=== PATIENT | male | born 1945 | race Caucasian/White ===

== ENCOUNTER 2020-11-23 10:45 | Day surgery (SDC) | payer MEDICARE ==
[~2020-11-23] VITALS: Ht 188 cm; Wt 93.2 kg
[2020-11-23] VITALS (15 sets, daily range): BP systolic 104–135; BP diastolic 43–77
[~2020-11-23 10:45] MED LIST: ATOR10TA87 PO; FAMO-1 PO; HYDR12.522 PO; IRBE150T51 PO; NITR0.4T SL; OMEP-84 PO
[2020-11-23] MEDS ORDERED: ALPR-624 PO (11:24)
[2020-11-23] MEDS ORDERED: vitamin c (11:24)
[2020-11-23] MEDS ORDERED: DULO20CA50 PO (11:24)
[2020-11-23 11:57] LABS: BASOPHILS % (AUTO) 1.2 % (0-1); EOSINOPHILS # (AUTO) 0.1 X10'3 (0-0.9); EOSINOPHILS % (AUTO) 2.8 % (0-6); HEMOGLOBIN 12.2 g/dl (14.0-17.9); LYMPHOCYTES # (AUTO) 0.4 X10'3 (1.1-4.8); MEAN CORPUSCULAR HEMOGLOBIN 28.8 PG (27.0-31.0); MEAN CORPUSCULAR HGB CONC 33.9 g/dL (33.0-36.5); MEAN PLATELET VOLUME 7.9 FL (7.4-10.4); MONOCYTES # (AUTO) 0.2 X10'3 (0-0.9); MONOCYTES % (AUTO) 8.5 % (2-12); NEUTROPHILS # (AUTO) 1.7 X10'3 (1.8-7.7); NEUTROPHILS % (AUTO) 70.5 % (42-75); PLATELET COUNT 116 X10'3 (140-440); RED BLOOD COUNT 4.23 X10'6 (4.70-6.10); RED CELL DISTRIBUTION WIDTH 14.3 % (11.5-14.5); WHITE BLOOD COUNT 2.4 X10'3 (4.5-11.0)
[2020-11-23 12:12] LABS: ALANINE AMINOTRANSFERASE 18 U/L (12-78); ALBUMIN/GLOBULIN RATIO 1.5 (1.1-1.5); ALKALINE PHOSPHATASE 66 IU/L (46-116); ANION GAP 9 (8-16); ASPARTATE AMINO TRANSFERASE 14 U/L (10-37); BLOOD UREA NITROGEN 23 MG/DL (7-18); BUN/CREATININE RATIO 19.2 (5.4-32.0); CALCIUM 8.8 MG/DL (8.5-10.1); CHLORIDE 105 MMOL/L (99-107); GLUCOSE 100 MG/DL (70-104); PARTIAL THROMBOPLASTIN TIME 42 SECONDS (22-32); SODIUM 143 MMOL/L (135-145); TOTAL CARBON DIOXIDE 28.7 MMOL/L (24-32); TOTAL PROTEIN 6.7 G/DL (6.4-8.2); eGFR 59 ML/MIN
[2020-11-23 12:43] LABS: LARGE PLATELETS FEW; PLATELET ESTIMATE DECREASED; TOTAL CELLS COUNTED 100
[2020-11-23] MEDS ORDERED: fentaNYL/PF 50MCG/1 ML 2ML syringe ONE ×2 (13:27→14:18)
[2020-11-23] MEDS ORDERED: midazolam 1 mg/ML 2ml injection ONE (13:27)
[2020-11-23 13:30] LABS: CLARITY,URINE CLEAR (Clear); COLOR,URINE YELLOW (Yellow); UA COLLECTION TYPE CLN CATCH MIDSTREAM
[2020-11-23 13:36] LABS: GLUCOSE, URINE NEGATIVE (Neg); KETONES,URINE NEGATIVE (Neg); LEUKOCYTE ESTERASE ,URINE NEGATIVE (Neg); NITRITES, URINE NEGATIVE (Neg); OCCULT BLOOD,URINE NEGATIVE (Neg); PH,URINE 5.5 (4.8-8.0); PROTEIN,URINE NEGATIVE (Neg); UROBILINOGEN,URINE 0.2 E.U/dL (0.2-1.0)
== END 2020-11-23 15:45 | disposition home or self-care (01) ==
LOC: SSTAY O 10:45
PROVIDERS: ATTEND Preventive Medicine Aerospace Medicine
DX: M89.8X8 Other specified disorders of bone, other site (principal); M86.8X8 Other osteomyelitis, other site; I10 Essential (primary) hypertension; M19.90 Unspecified osteoarthritis, unspecified site; Z96.649 Presence of unspecified artificial hip joint; Z98.1 Arthrodesis status; Z98.890 Other specified postprocedural states; Z79.899 Other long term (current) drug therapy; Z87.891 Personal history of nicotine dependence; Z79.01 Long term (current) use of anticoagulants; Z20.822 Contact with and (suspected) exposure to COVID-19; Z80.9 Family history of malignant neoplasm, unspecified
CPT/HCPCS: 20220; 77012; 80053; 81003; 85025; 85610; 85730; 87635; 93005; 99152; 99153; C9803; J2250; J3010; 20225; 85007

== ENCOUNTER 2020-11-25 05:33 | Day surgery (SDC) | payer MEDICARE ==
[~2020-11-25] VITALS: Ht 188 cm; Wt 95.9 kg
[2020-11-25] VITALS (11 sets, daily range): BP systolic 117–135; BP diastolic 58–65
[~2020-11-25 05:33] MED LIST changes: +ALPR-624 PO; +DULO20CA50 PO; +cefazolin/dext.iso 2gm/100ml IV ONE; +famotidine 20mg tablet PO ONE; +ringers solution, lacted 1,000 ML IV SCH; +vitamin c
[2020-11-25] MEDS ORDERED: BUPIVAcaine/PF 2.5mg/ml (0.25%) 10ml vial ONE (06:54)
[2020-11-25] MEDS ORDERED: LIDOcaine 1% 30ml preserv. free vial ONE (06:54)
[2020-11-25] MEDS ORDERED: fentaNYL/PF 50MCG/1 ML 2ML syringe IV PRN ×2 (08:35)
[2020-11-25] MEDS ORDERED: hydrALAZINE 20mg/ml inj. IV PRN (08:35)
[2020-11-25] MEDS ORDERED: ondansetron/PF 4mg/2ml inj IV PRN (08:35)
[2020-11-25] MEDS ORDERED: ringers solution, lacted 1,000 ML IV SCH (08:35)
[2020-11-25] MEDS ORDERED: morphine 4 MG/ML inj SYRINge IV PRN (08:35)
[2020-11-25] MEDS ORDERED: morphine 2 MG/ML inj. syringe IV PRN (08:35)
[2020-11-25] MEDS ORDERED: labetalol 20mg/4ml (5mg/ml) syringe IV PRN (08:35)
[2020-11-25] MEDS ORDERED: sevoflurane 250ml liquid IH ONE (09:16)
[2020-11-25] MEDS ORDERED: fentaNYL/PF 50MCG/1 ML 2ML syringe ONE (09:19)
[2020-11-25] MEDS ORDERED: ondansetron/PF 4mg/2ml inj ONE (09:21)
[2020-11-25] MEDS ORDERED: LIDOcaine 2% (20mg/ml) 5ml vial ONE (09:21)
[2020-11-25] MEDS ORDERED: propofol inj 20 ML IV ONE (09:21)
[2020-11-25] MEDS ORDERED: dexamethasone sod phosphate 4mg/ml inj. ONE (09:21)
[2020-11-25] MEDS ORDERED: midazolam 1 mg/ML 2ml injection ONE (09:21)
[2020-11-25] MEDS ORDERED: ePHEDrine 50MG/ML INJ. ONE (09:31)
[2020-11-25] MEDS ORDERED: naloxone 0.4 mg/ml inj ONE (10:07)
--- NOTE | 2020-11-25 10:14 | NUR ---
Received from OR via , accompanied by Anesthesiologist DR VALDIVIA and report given by Anesthesiolgist. PT PRESENTS WITH 20G LEFT HAND, VSS. DRSSING DRY AND INTACT. Addendum: 11/25/20 at 1022 by Gabby Naranjo RN, RN Amended: Links added.
== END 2020-11-25 11:34 | disposition home or self-care (01) ==
LOC: PAS 05:33
PROVIDERS: ATTEND Surgery
DX: R59.0 Localized enlarged lymph nodes (principal); L91.8 Other hypertrophic disorders of the skin; D36.12 Benign neoplasm of peripheral nerves and autonomic nervous system, upper limb, including shoulder; I10 Essential (primary) hypertension; F32.9 Major depressive disorder, single episode, unspecified; F41.9 Anxiety disorder, unspecified; K21.9 Gastro-esophageal reflux disease without esophagitis; D61.818 Other pancytopenia; M19.90 Unspecified osteoarthritis, unspecified site; Z79.899 Other long term (current) drug therapy; Z87.891 Personal history of nicotine dependence; Z96.642 Presence of left artificial hip joint; Z96.651 Presence of right artificial knee joint; Z98.890 Other specified postprocedural states; Z98.1 Arthrodesis status; R20.3 Hyperesthesia
CPT/HCPCS: 11200; 38525; 82948; J1100; J2001; J2250; J2310; J2405; J2704; J3010; J3490; J7120; Z7506; Z7512; A4215; A4618; A7000

== ENCOUNTER 2022-06-11 23:22 | Emergency (ER) | payer MEDICARE ==
[~2022-06-11] VITALS: Ht 188 cm; Wt 86.6 kg
[~2022-06-11 23:22] MED LIST changes: -ATOR10TA87 PO; -FAMO-1 PO; -HYDR12.522 PO; -NITR0.4T SL; -cefazolin/dext.iso 2gm/100ml IV ONE; -famotidine 20mg tablet PO ONE; -ringers solution, lacted 1,000 ML IV SCH
[2022-06-11 23:25] VITALS: BP 145/67
== END 2022-06-12 | disposition home or self-care (01) ==
LOC: ER 23:23
DX: I10 Essential (primary) hypertension (principal); K21.9 Gastro-esophageal reflux disease without esophagitis; Z72.89 Other problems related to lifestyle; Z79.899 Other long term (current) drug therapy; Z98.890 Other specified postprocedural states
CPT/HCPCS: 93005; 99283

== ENCOUNTER 2022-08-20 16:58 | Emergency (ER) | payer MEDICARE ==
[~2022-08-20] VITALS: Ht 190.5 cm; Wt 91.0 kg
[2022-08-20 17:12] VITALS: BP 131/63
[2022-08-20] MEDS ORDERED: MOLN200C PO (19:31)
[2022-08-21] MEDS ORDERED: NIRM1TAB PO (11:06)
== END 2022-08-20 19:45 | disposition home or self-care (01) ==
LOC: ER 16:59
DX: U07.1 COVID-19 (principal); I10 Essential (primary) hypertension; K21.9 Gastro-esophageal reflux disease without esophagitis
CPT/HCPCS: 99283

== ENCOUNTER 2022-11-24 09:15 | Day surgery (SDC) | payer MEDICARE ==
[~2022-11-24] VITALS: Ht 190.5 cm; Wt 97.5 kg
[~2022-11-24 09:15] MED LIST changes: +MOLN200C PO; +NIRM1TAB PO
[2022-11-24 09:45] VITALS: BP 123/69; PULSE 72; RESP 16; TEMP 98.2; O2SAT 96
[2022-11-24] MEDS ORDERED: normal saline 1000ml 1,000 ML IV SCH (09:50)
[2022-11-24] MEDS ORDERED: fentaNYL/PF 50MCG/1 ML 2ML syringe IV ONE (09:55)
[2022-11-24] MEDS ORDERED: MIDAZolam 1 MG/ML 5ML VIAL IV ONE (09:55)
[2022-11-24] MEDS ORDERED: ONDA-104 PO (10:06)
[2022-11-24] MEDS ORDERED: METO25TA6 PO (10:06)
[2022-11-24] MEDS ORDERED: ZANU80CA (10:06)
[2022-11-24 10:15] LABS: BASOPHILS % (AUTO) 0.4 % (0-1); EOSINOPHILS # (AUTO) 0.1 X10'3 (0-0.9); EOSINOPHILS % (AUTO) 4.5 % (0-6); HEMATOCRIT 37.2 % (42.0-52.0); HEMOGLOBIN 12.4 g/dl (14.0-17.9); LYMPHOCYTES # (AUTO) 0.5 X10'3 (1.1-4.8); LYMPHOCYTES % (AUTO) 18.6 % (21-51); MEAN CORPUSCULAR HEMOGLOBIN 28.7 PG (27.0-31.0); MEAN CORPUSCULAR HGB CONC 33.2 g/dL (33.0-36.5); MEAN CORPUSCULAR VOLUME 86.5 FL (78-98); MEAN PLATELET VOLUME 9.1 FL (7.4-10.4); MONOCYTES # (AUTO) 0.4 X10'3 (0-0.9); MONOCYTES % (AUTO) 14.2 % (2-12); NEUTROPHILS # (AUTO) 1.6 X10'3 (1.8-7.7); NEUTROPHILS % (AUTO) 62.3 % (42-75); PLATELET COUNT 106 X10'3 (140-440); RED CELL DISTRIBUTION WIDTH 14.2 % (11.5-14.5); WHITE BLOOD COUNT 2.6 X10'3 (4.5-11.0)
[2022-11-24 10:16] LABS: INR 1.2 INR; PROTHROMBIN TIME 12.5 SECONDS (9.0-12.0)
[2022-11-24 10:58] LABS: PLATELET ESTIMATE DECREASED; TOTAL CELLS COUNTED 100
[2022-11-24] MEDS ORDERED: gelatin sponge, absorbable (Gelfoam 12-7MM) sponge TP ONE (11:03)
[2022-11-24] MEDS ORDERED: fentaNYL/PF 50MCG/1 ML 2ML syringe ONE (11:31)
[2022-11-24] MEDS ORDERED: midazolam 1 mg/ML 2ml injection ONE (11:31)
[2022-11-24 11:44] VITALS: BP 153/72; PULSE 66; RESP 16; O2SAT 98
[2022-11-24 11:50] VITALS: BP 144/67; PULSE 70; RESP 14; O2SAT 99
--- NOTE | 2022-11-24 12:10 | NUR ---
pt discharged in stable condition. all belongings sent home with pt. pt to resume all home meds per MD. pt did not have procedure, he decided to postpone. pt ambulated to private vehicle. piv dc'd canula intact.
== END 2022-11-24 12:10 | disposition home or self-care (01) ==
LOC: SSTAY O 09:15
PROVIDERS: ATTEND Radiology Vascular & Interventional Radiology
DX: K76.89 Other specified diseases of liver (principal); Z53.20 Procedure and treatment not carried out because of patient's decision for unspecified reasons; C83.07 Small cell B-cell lymphoma, spleen; Z79.899 Other long term (current) drug therapy
CPT/HCPCS: 74150; 85025; 85610; J2250; J3010; J7030; 85007; A4615; A4620

== ENCOUNTER 2023-07-10 13:46 | Emergency (ER) | payer MEDICARE ==
[~2023-07-10] VITALS: Ht 188 cm; Wt 85.0 kg
[~2023-07-10 13:46] MED LIST changes: -ALPR-624 PO; -DULO20CA50 PO; +METO25TA6 PO; -MOLN200C PO; -NIRM1TAB PO; +ONDA-104 PO; +ZANU80CA
[2023-07-10 13:53] VITALS: TEMP 97.8
[2023-07-10 15:55] LABS: BASOPHILS % (AUTO) 0.1 % (0-1); EOSINOPHILS % (AUTO) 1.8 % (0-6); HEMATOCRIT 32.7 % (42.0-52.0); LYMPHOCYTES # (AUTO) 0.1 X10'3 (1.1-4.8); LYMPHOCYTES % (AUTO) 3.2 % (21-51); MEAN CORPUSCULAR HEMOGLOBIN 30.1 PG (27.0-31.0); MEAN CORPUSCULAR HGB CONC 33.7 g/dL (33.0-36.5); MEAN CORPUSCULAR VOLUME 89.5 FL (78-98); MEAN PLATELET VOLUME 8.1 FL (7.4-10.4); MONOCYTES # (AUTO) 0.2 X10'3 (0-0.9); MONOCYTES % (AUTO) 9.1 % (2-12); NEUTROPHILS # (AUTO) 2.1 X10'3 (1.8-7.7); NEUTROPHILS % (AUTO) 85.8 % (42-75); PLATELET COUNT 69 X10'3 (140-440); RED BLOOD COUNT 3.66 X10'6 (4.70-6.10); RED CELL DISTRIBUTION WIDTH 14.8 % (11.5-14.5); WHITE BLOOD COUNT 2.5 X10'3 (4.5-11.0)
[2023-07-10 16:05] LABS: ALBUMIN 3.4 G/DL (3.4-5.0); ANION GAP 9 (8-16); BLOOD UREA NITROGEN 20 MG/DL (7-18); BUN/CREATININE RATIO 17.9 (10.0-20.0); CALCIUM 8.4 MG/DL (8.5-10.1); CHLORIDE 105 MMOL/L (99-107); CREATININE 1.12 MG/DL (0.60-1.10); GLUCOSE 98 MG/DL (70-104); POTASSIUM 3.4 MMOL/L (3.5-5.1); SODIUM 139 MMOL/L (135-145); TOTAL CARBON DIOXIDE 24.8 MMOL/L (24-32); eCRCL 63 ML/MIN; eGFR 63 ML/MIN
[2023-07-10 16:06] LABS: BILIRUBIN,URINE NEGATIVE (Neg); CLARITY,URINE CLEAR (Clear); COLOR,URINE YELLOW (Yellow); GLUCOSE, URINE NEGATIVE (Neg); KETONES,URINE NEGATIVE (Neg); LEUKOCYTE ESTERASE ,URINE NEGATIVE (Neg); NITRITES, URINE NEGATIVE (Neg); OCCULT BLOOD,URINE NEGATIVE (Neg); PH,URINE 5.5 (4.8-8.0); PROTEIN,URINE NEGATIVE (Neg); UROBILINOGEN,URINE 0.2 E.U/dL (0.2-1.0)
[2023-07-10 16:10] LABS: UA COLLECTION TYPE VOIDED
[2023-07-10] MEDS ORDERED: iohexol 300mg/ml 100ml inj. ONE (16:12)
[2023-07-10 16:19] LABS: TOTAL CELLS COUNTED 100
[2023-07-10 16:20] LABS: ELLIPTOCYTES FEW; PLATELET ESTIMATE DECREASED
[2023-07-10 16:21] LABS: TEAR DROP CELLS FEW
[2023-07-10 18:35] VITALS: BP 140/72; PULSE 72; RESP 16; O2SAT 95
[2023-07-13] MEDS ORDERED: OMEP40CA21 PO (13:44)
[2023-07-13] MEDS ORDERED: TRAZ-251 PO (13:48)
[2023-07-13] MEDS ORDERED: ALLO300T8 PO (13:48)
[2023-07-13] MEDS ORDERED: LORA10CA PO (13:48)
[2023-07-13] MEDS ORDERED: OMEP20CA16 PO (13:48)
== END 2023-07-10 19:54 | disposition home or self-care (01) ==
LOC: ER 13:46
DX: K40.20 Bilateral inguinal hernia, without obstruction or gangrene, not specified as recurrent (principal)
CPT/HCPCS: 36415; 74177; 80048; 81003; 85007; 85025; 99285; J3490; Q9967

== ENCOUNTER 2023-07-20 09:40 | Day surgery (SDC) | payer MEDICARE ==
[2023-07-20] VITALS (14 sets, daily range): BP systolic 125–164; BP diastolic 59–92; PULSE 56–70; RESP 10–17; TEMP 98.1; O2SAT 94–100
[~2023-07-20] VITALS: Ht 188 cm; Wt 90.1 kg
[2023-07-20] MEDS: cefazolin 2gm/D5W 100mL 100 ML IV ONE (05:30)
[~2023-07-20 09:40] MED LIST changes: +ALLO300T8 PO; +LORA10CA PO; -METO25TA6 PO; -OMEP-84 PO; +OMEP20CA16 PO; -ONDA-104 PO; +TRAZ-251 PO; -ZANU80CA; -vitamin c
[2023-07-20] MEDS: famotidine 20mg tablet PO ONE (10:20)
[2023-07-20] MEDS: ringers solution, lacted 1,000 ML IV SCH (10:20)
[2023-07-20] MEDS ORDERED: sevoflurane 250ml liquid IH ONE (14:15)
[2023-07-20] MEDS ORDERED: fentaNYL/PF 50MCG/1 ML 2ML syringe ONE (14:19)
[2023-07-20] MEDS ORDERED: midazolam 1 mg/ML 2ml injection ONE (14:20)
[2023-07-20] MEDS ORDERED: propofol inj 20 ML IV ONE (14:23)
[2023-07-20] MEDS ORDERED: LIDOcaine 2% (20mg/ml) 5ml vial ONE (14:23)
[2023-07-20] MEDS ORDERED: ondansetron/PF 4mg/2ml inj ONE (14:24)
[2023-07-20] MEDS ORDERED: rocuronium 10mg/ml inj IV ONE (14:24)
[2023-07-20] MEDS ORDERED: acetaminophen 1,000mg/100ml IV 100 ML IV ONE (14:31)
[2023-07-20] MEDS ORDERED: labetalol 20mg/4ml (5mg/ml) syringe IV ONE (14:42)
[2023-07-20] MEDS: BUPIVAcaine 2.5mg/ml inj 50ml vial (contains preservative) ONE (14:55)
[2023-07-20] MEDS: LIDOcaine 1% 30ml preserv. free vial ONE (14:58)
[2023-07-20] MEDS ORDERED: fentaNYL/PF 50MCG/1 ML 2ML syringe IV PRN (15:10)
[2023-07-20] MEDS ORDERED: hydrALAZINE 20mg/ml inj. IV PRN (15:10)
[2023-07-20] MEDS ORDERED: labetalol 20mg/4ml (5mg/ml) syringe IV PRN (15:10)
[2023-07-20] MEDS ORDERED: ondansetron/PF 4mg/2ml inj IV PRN (15:10)
[2023-07-20] MEDS ORDERED: ringers solution, lacted 1,000 ML IV SCH (15:10)
[2023-07-20] MEDS ORDERED: morphine 2 MG/ML inj. syringe IV PRN (15:10)
[2023-07-20] MEDS ORDERED: sugammadex 200mg/2ml injection IV ONE (15:19)
[2023-07-20] MEDS: morphine 4 MG/ML inj SYRINge IV PRN (15:31)
[2023-07-20] MEDS: HYDROcodone/acetaminophen 5mg/325mg tablet PO PRN (17:02)
[2023-07-20] MEDS: fentaNYL/PF 50MCG/1 ML 2ML syringe IV PRN (17:04)
== END 2023-07-20 18:21 | disposition home or self-care (01) ==
LOC: PAS 09:40
PROVIDERS: ATTEND Surgery
DX: K40.90 Unilateral inguinal hernia, without obstruction or gangrene, not specified as recurrent (principal); K21.9 Gastro-esophageal reflux disease without esophagitis; M19.90 Unspecified osteoarthritis, unspecified site; I10 Essential (primary) hypertension; Z79.899 Other long term (current) drug therapy; Z98.890 Other specified postprocedural states; Z87.891 Personal history of nicotine dependence
CPT/HCPCS: 49650; 82948; C1781; J0131; J0690; J1100; J2250; J2270; J2405; J2704; J3010; J3490; J7030; J7120; Z7506; Z7508; Z7512; A4215; A4618